=== PATIENT | female | born 1980 | race Caucasian/White ===

== ENCOUNTER 2020-04-29 19:06 | Emergency (ER) | payer BC ==
[~2020-04-29] VITALS: Ht 154.9 cm; Wt 72.7 kg
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
[2020-04-29] MEDS ORDERED: diphenhydrAMINE 50 mg/ml inj IM ONE (19:50)
[2020-04-29] MEDS ORDERED: LORazepam 2 mg/ml vial IM ONE ×2 (19:50→20:15)
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
--- NOTE | 2020-04-29 20:39 | NUR ---
PT MOTHER , PHUONG CAN BE REACHED AT [phone]
--- NOTE | 2020-04-29 20:48 | NUR ---
PT CONTINUES TO BE RESTLESS AND AGGITATED AND IS YELLING OUT PROFANITIES AT STAFF. CONTINUES IN LOCKED RESTRAINTS, WAS INITIALLY IN SOFT RESTRAINTS X4, BUT WAS PULLING OUT OF THEM SO ASHLYN FROST CHANGED TO LOCKED RESTRAINTS.
[2020-04-29 20:57] LABS: BASOPHILS # (AUTO) 0.1 X10'3 (0-0.2); BASOPHILS % (AUTO) 0.5 % (0-1); EOSINOPHILS # (AUTO) 0.1 X10'3 (0-0.9); HEMOGLOBIN 11.1 g/dl (12.0-16.0); LYMPHOCYTES % (AUTO) 38.7 % (21-51); MEAN CORPUSCULAR HEMOGLOBIN 25.8 PG (27.0-31.0); MEAN CORPUSCULAR HGB CONC 31.7 g/dL (33.0-36.5); MEAN CORPUSCULAR VOLUME 81.4 FL (78-98); MEAN PLATELET VOLUME 7.9 FL (7.4-10.4); MONOCYTES # (AUTO) 0.6 X10'3 (0-0.9); MONOCYTES % (AUTO) 4.4 % (2-12); NEUTROPHILS # (AUTO) 7.2 X10'3 (1.8-7.7); NEUTROPHILS % (AUTO) 55.4 % (42-75); PLATELET COUNT 400 X10'3 (140-440); RED CELL DISTRIBUTION WIDTH 16.8 % (11.5-14.5); WHITE BLOOD COUNT 12.9 X10'3 (4.5-11.0)
--- NOTE | 2020-04-29 21:01 | NUR ---
ASHLYN FROST UPDATED OF 2ND DOSE OF ATIVAN JUST GIVEN AND THAT PT REMAINS RESTLESS AND AGGITTED. HE REPORTS HE WILL CALL HER WITH AN UPDATED SHORTLY.
[2020-04-29 21:08] LABS: ALANINE AMINOTRANSFERASE 45 U/L (12-78); ALBUMIN 3.5 G/DL (3.4-5.0); ALKALINE PHOSPHATASE 131 IU/L (46-116); ANION GAP 11 (8-16); ASPARTATE AMINO TRANSFERASE 34 U/L (10-37); BILIRUBIN,TOTAL 0.1 MG/DL (0.1-1.0); BLOOD UREA NITROGEN 16 MG/DL (7-18); BUN/CREATININE RATIO 18.4 (6.6-38.0); CALCIUM 8.3 MG/DL (8.5-10.1); CHLORIDE 110 MMOL/L (99-107); CREATININE 0.87 MG/DL (0.40-0.90); GLUCOSE 117 MG/DL (70-104); SODIUM 147 MMOL/L (135-145); TOTAL CARBON DIOXIDE 25.9 MMOL/L (24-32); TOTAL PROTEIN 7.1 G/DL (6.4-8.2); eGFR 72 ML/MIN
[2020-04-29 21:10] LABS: LIPASE 195 U/L (73-393); PHOSPHORUS 3.8 MG/DL (2.3-4.5)
[2020-04-29 21:13] LABS: ETHANOL 0.417 GM/DL (0.0-0.010)
[2020-04-29 23:31] VITALS: BP 110/70
--- NOTE | 2020-04-29 23:41 | NUR ---
RESTRAINTS REMOVED AT 2330 PT HAS BEEN CALM AND SLEEPING OVER THE PAST 30 MIN. WARM BLANKET PLACED. HR NOW 106
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
--- NOTE | 2020-04-30 01:08 | NUR ---
Pts calling and will be here in 10 min. he reprots he is nervous to bring her home if she is still aggressive and beligerant as they have children at home. I report to him that her biggest complaint is that she cannot have him here and she needs him with her and that she wants to go home. I told him she should be very sleepy due to the meds we gave her. She is now sleeping. Pt told that he has the option to call law enforcement if necesary once home.
== END 2020-04-30 01:21 | disposition home or self-care (01) ==
LOC: ER 19:07
DX: F10.920 Alcohol use, unspecified with intoxication, uncomplicated (principal); Y90.8 Blood alcohol level of 240 mg/100 ml or more
CPT/HCPCS: 36415; 80053; 80320; 83690; 83735; 84100; 85025; 96372; 99284; J1200; J2060

== ENCOUNTER 2020-07-04 19:01 | Emergency (ER) | payer BC ==
[~2020-07-04] VITALS: Ht 154.9 cm; Wt 68.2 kg
[2020-07-04 19:03] VITALS: BP 134/89
== END 2020-07-04 22:30 | disposition left against medical advice (07) ==
LOC: ER 19:01
DX: M54.2 Cervicalgia (principal); Z53.21 Procedure and treatment not carried out due to patient leaving prior to being seen by health care provider

== ENCOUNTER 2020-10-09 19:56 | Emergency (ER) | payer BC ==
[~2020-10-09] VITALS: Ht 154.9 cm; Wt 68.0 kg
--- NOTE | 2020-10-09 20:54 | NUR ---
FEMALE RN WAS ASKED TO ASSIST PT TO CHANGE INTO GREEN SCRUBS. PT WAS COOPERATIVE WITH PROCESS REMAINS EMOTIONAL AND CRYING AT THIS TIME.
[2020-10-09 21:15] LABS: BASOPHILS % (AUTO) 0.5 % (0-1); EOSINOPHILS # (AUTO) 0.1 X10'3 (0-0.9); EOSINOPHILS % (AUTO) 0.9 % (0-6); HEMATOCRIT 31.8 % (35.0-45.0); HEMOGLOBIN 10.2 g/dl (12.0-16.0); LYMPHOCYTES # (AUTO) 3.8 X10'3 (1.1-4.8); LYMPHOCYTES % (AUTO) 45.7 % (21-51); MEAN CORPUSCULAR HEMOGLOBIN 24.7 PG (27.0-31.0); MEAN CORPUSCULAR VOLUME 77.3 FL (78-98); MEAN PLATELET VOLUME 7.9 FL (7.4-10.4); MONOCYTES # (AUTO) 0.4 X10'3 (0-0.9); MONOCYTES % (AUTO) 4.2 % (2-12); NEUTROPHILS # (AUTO) 4.1 X10'3 (1.8-7.7); NEUTROPHILS % (AUTO) 48.7 % (42-75); PLATELET COUNT 312 X10'3 (140-440); RED BLOOD COUNT 4.12 X10'6 (4.20-5.60); RED CELL DISTRIBUTION WIDTH 17.9 % (11.5-14.5); WHITE BLOOD COUNT 8.4 X10'3 (4.5-11.0)
[2020-10-09 21:28] LABS: ALANINE AMINOTRANSFERASE 31 U/L (12-78); ALBUMIN 3.1 G/DL (3.4-5.0); ALBUMIN/GLOBULIN RATIO 0.9 (1.1-1.5); ALKALINE PHOSPHATASE 90 IU/L (46-116); ANION GAP 11 (8-16); ASPARTATE AMINO TRANSFERASE 20 U/L (10-37); BILIRUBIN,TOTAL 0.1 MG/DL (0.1-1.0); BLOOD UREA NITROGEN 23 MG/DL (7-18); BUN/CREATININE RATIO 34.8 (6.6-38.0); CALCIUM 7.4 MG/DL (8.5-10.1); CHLORIDE 109 MMOL/L (99-107); CREATININE 0.66 MG/DL (0.40-0.90); ETHANOL 0.244 GM/DL (0.0-0.010); GLUCOSE 98 MG/DL (70-104); POTASSIUM 3.9 MMOL/L (3.5-5.1); SODIUM 143 MMOL/L (135-145); TOTAL CARBON DIOXIDE 23.4 MMOL/L (24-32); TOTAL PROTEIN 6.5 G/DL (6.4-8.2); eGFR > 90 ML/MIN
--- NOTE | 2020-10-09 22:48 | NUR ---
The patient moved to bed 26 in the ER overflow. She was cooperative with the move and did provide a urine sample.
[2020-10-09 22:51] LABS: URINE HCG NEGATIVE (NEG)
[2020-10-09 23:02] LABS: URINE AMPHETAMINE SCREEN POSITIVE (Neg); URINE BARBITUATE SCREEN NEGATIVE (Neg); URINE BENZODIAZEPINES SCREEN NEGATIVE (Neg); URINE CANNABINOID SCREEN NEGATIVE (Neg); URINE COCAINE SCREEN NEGATIVE (Neg); URINE METHADONE SCREEN NEGATIVE (Neg); URINE OPIATE SCREEN NEGATIVE (Neg); URINE PHENCYCLIDINE SCREEN NEGATIVE (Neg)
--- NOTE | 2020-10-10 00:08 | NUR ---
The patient appears to be sleeping
--- NOTE | 2020-10-10 01:59 | NUR ---
The patient appears to be sleeping
--- NOTE | 2020-10-10 03:50 | NUR ---
The patient appears to be sleeping
--- NOTE | 2020-10-10 05:20 | NUR ---
The patient appears to be sleeping
[2020-10-10 06:03] VITALS: BP 132/78
--- NOTE | 2020-10-10 06:46 | NUR ---
PT'S CALLED TO TELL HER THAT HE LOVES HER. HIS NAME IS EMILY, HIS NUMBER IS [phone].
[2020-10-10 07:06] LABS: UA COLLECTION TYPE CLN CATCH MIDSTREAM
[2020-10-10 07:08] LABS: COLOR,URINE YELLOW (Yellow); GLUCOSE, URINE NEGATIVE (Neg); KETONES,URINE NEGATIVE (Neg); LEUKOCYTE ESTERASE ,URINE NEGATIVE (Neg); NITRITES, URINE POSITIVE (Neg); OCCULT BLOOD,URINE TRACE-INTACT (Neg); PROTEIN,URINE NEGATIVE (Neg); UROBILINOGEN,URINE 0.2 E.U/dL (0.2-1.0)
[2020-10-10 07:10] LABS: CLARITY,URINE SLIGHTLY CLOUDY (Clear)
[2020-10-10 07:12] LABS: BACTERIA,URINE 4+ /HPF (Neg); RBC,URINE 0-2 /HPF (0-2); SQUAMOUS EPITHELIAL CELL,UR FEW /LPF (FEW); WBC,URINE 0-4 /HPF (0-4)
[2020-10-10 07:13] LABS: CAL OXALATE CRYSTALS FEW /HPF (NEGATIVE)
--- NOTE | 2020-10-10 07:32 | NUR ---
PACKET FAXED TO [facility]
[2020-10-10] MEDS ORDERED: acetaminophen 325mg tablet PO ONE (09:35)
[2020-10-10] MEDS ORDERED: LAMO25TA94 PO (12:16)
== END 2020-10-10 14:50 | disposition home or self-care (01) ==
LOC: ER 19:57
DX: R45.851 Suicidal ideations (principal); F10.129 Alcohol abuse with intoxication, unspecified; F15.90 Other stimulant use, unspecified, uncomplicated; Z88.5 Allergy status to narcotic agent; Z88.1 Allergy status to other antibiotic agents; Z88.8 Allergy status to other drugs, medicaments and biological substances; Z79.899 Other long term (current) drug therapy; Y90.9 Presence of alcohol in blood, level not specified
CPT/HCPCS: 36415; 80053; 80305; 80320; 81001; 81025; 85025; 87077; 87088; 87186; 99285

== ENCOUNTER 2020-11-27 22:16 | Emergency (ER) | payer BC ==
[~2020-11-27] VITALS: Ht 160 cm; Wt 80.0 kg
[~2020-11-27 22:16] MED LIST: LAMO25TA94 PO
[2020-11-27 22:42] VITALS: BP 122/82
[2020-11-28] MEDS ORDERED: DEXA6TAB6 PO (10:13)
== END 2020-11-28 00:15 | disposition left against medical advice (07) ==
LOC: ER 22:17
DX: F50.9 Eating disorder, unspecified (principal); Z53.21 Procedure and treatment not carried out due to patient leaving prior to being seen by health care provider

== ENCOUNTER 2020-11-28 08:24 | Emergency (ER) | payer BC ==
[~2020-11-28] VITALS: Ht 160 cm; Wt 80.0 kg
[2020-11-28 09:14] VITALS: BP 146/107
[2020-11-28] MEDS ORDERED: DEXA6TAB6 PO (10:13)
== END 2020-11-28 08:55 | disposition home or self-care (01) ==
LOC: ER 08:24
DX: J02.9 Acute pharyngitis, unspecified (principal); Z20.822 Contact with and (suspected) exposure to COVID-19; R05 Cough; R51.9 Headache, unspecified; R43.8 Other disturbances of smell and taste; F17.200 Nicotine dependence, unspecified, uncomplicated; F15.90 Other stimulant use, unspecified, uncomplicated; Z72.89 Other problems related to lifestyle; Z88.5 Allergy status to narcotic agent; Z88.0 Allergy status to penicillin; Z88.8 Allergy status to other drugs, medicaments and biological substances; Z79.899 Other long term (current) drug therapy
CPT/HCPCS: 71045; 87635; 99284; C9803

== ENCOUNTER 2020-12-30 13:51 | Emergency (ER) | payer BC, MEDICAID ==
[~2020-12-30] VITALS: Ht 160 cm; Wt 77.0 kg
[~2020-12-30 13:51] MED LIST changes: +DEXA6TAB6 PO
[2020-12-30] MEDS ORDERED: nitroGLYCERIN 0.4mg SUBLingual tab SL PRN (15:05)
[2020-12-30 15:32] LABS: BASOPHILS % (AUTO) 0.4 % (0-1); EOSINOPHILS # (AUTO) 0.1 X10'3 (0-0.9); EOSINOPHILS % (AUTO) 1.1 % (0-6); HEMATOCRIT 30.9 % (35.0-45.0); HEMOGLOBIN 9.9 g/dl (12.0-16.0); LYMPHOCYTES # (AUTO) 3.3 X10'3 (1.1-4.8); LYMPHOCYTES % (AUTO) 35.8 % (21-51); MEAN CORPUSCULAR HEMOGLOBIN 24.4 PG (27.0-31.0); MEAN CORPUSCULAR HGB CONC 32.1 g/dL (33.0-36.5); MEAN CORPUSCULAR VOLUME 75.9 FL (78-98); MEAN PLATELET VOLUME 8.1 FL (7.4-10.4); MONOCYTES # (AUTO) 0.6 X10'3 (0-0.9); MONOCYTES % (AUTO) 6.8 % (2-12); NEUTROPHILS # (AUTO) 5.1 X10'3 (1.8-7.7); NEUTROPHILS % (AUTO) 55.9 % (42-75); PLATELET COUNT 303 X10'3 (140-440); RED BLOOD COUNT 4.08 X10'6 (4.20-5.60); RED CELL DISTRIBUTION WIDTH 17.8 % (11.5-14.5); WHITE BLOOD COUNT 9.1 X10'3 (4.5-11.0)
[2020-12-30 15:43] LABS: ALANINE AMINOTRANSFERASE 31 U/L (12-78); ALBUMIN/GLOBULIN RATIO 0.9 (1.1-1.5); ALKALINE PHOSPHATASE 129 IU/L (46-116); ANION GAP 8 (8-16); ASPARTATE AMINO TRANSFERASE 20 U/L (10-37); BILIRUBIN,TOTAL 0.1 MG/DL (0.1-1.0); BLOOD UREA NITROGEN 13 MG/DL (7-18); BUN/CREATININE RATIO 17.3 (6.6-38.0); CALCIUM 8.3 MG/DL (8.5-10.1); CHLORIDE 110 MMOL/L (99-107); CREATININE 0.75 MG/DL (0.40-0.90); GLUCOSE 72 MG/DL (70-104); POTASSIUM 4.2 MMOL/L (3.5-5.1); SODIUM 145 MMOL/L (135-145); TOTAL CARBON DIOXIDE 27.3 MMOL/L (24-32); TOTAL PROTEIN 6.5 G/DL (6.4-8.2); eGFR 85 ML/MIN
--- NOTE | 2020-12-30 16:15 | NUR ---
pt moved from hallway with medics to room 7
[2020-12-30] MEDS ORDERED: sucralfate 1gm/10ml UD suspension PO STA (17:08)
[2020-12-30] MEDS ORDERED: LIDOcaine Viscous 15ml cup MM ONE (17:10)
[2020-12-30] MEDS ORDERED: mag hydrox/Alum hydrox/simeth 30ml oral suspension PO ONE (17:10)
[2020-12-30] MEDS ORDERED: sucralfate 1 gm tablet PO STA (17:15)
[2020-12-30 17:50] VITALS: BP 120/82
== END 2020-12-30 18:34 | disposition home or self-care (01) ==
LOC: ER 13:51
DX: R07.89 Other chest pain (principal); R20.0 Anesthesia of skin; R20.2 Paresthesia of skin; R06.02 Shortness of breath; F15.90 Other stimulant use, unspecified, uncomplicated; Z72.89 Other problems related to lifestyle; Z88.0 Allergy status to penicillin; Z88.8 Allergy status to other drugs, medicaments and biological substances; Z79.899 Other long term (current) drug therapy
CPT/HCPCS: 36415; 71045; 80053; 83880; 84484; 85025; 93005; 99285

== ENCOUNTER → 2021-02-26 | Outpatient (CLI) | payer BC, MEDICAID ==
[~2021-02-26] MED LIST changes: +barium sulfate 450ml oral suspension ONE; +iohexol 300mg/ml 100ml inj. ONE
== END | disposition home or self-care (01) ==
LOC: RAD 08:54
DX: N83.201 Unspecified ovarian cyst, right side (principal); Z90.49 Acquired absence of other specified parts of digestive tract
CPT/HCPCS: 74177; Q9967

== ENCOUNTER 2021-06-25 12:52 | Outpatient (CLI) | payer BC, MEDICAID ==
[~2021-06-25 12:52] MED LIST changes: -barium sulfate 450ml oral suspension ONE; -iohexol 300mg/ml 100ml inj. ONE
[2021-06-25 17:12] LABS: BASOPHILS % (AUTO) 0.5 % (0-1); EOSINOPHILS # (AUTO) 0.1 X10'3 (0-0.9); EOSINOPHILS % (AUTO) 1.4 % (0-6); HEMATOCRIT 32.1 % (35.0-45.0); HEMOGLOBIN 10.2 g/dl (12.0-16.0); LYMPHOCYTES # (AUTO) 3.4 X10'3 (1.1-4.8); LYMPHOCYTES % (AUTO) 33.5 % (21-51); MEAN CORPUSCULAR HEMOGLOBIN 22.9 PG (27.0-31.0); MEAN CORPUSCULAR HGB CONC 31.6 g/dL (33.0-36.5); MEAN CORPUSCULAR VOLUME 72.6 FL (78-98); MEAN PLATELET VOLUME 8.6 FL (7.4-10.4); MONOCYTES # (AUTO) 0.5 X10'3 (0-0.9); MONOCYTES % (AUTO) 5.1 % (2-12); NEUTROPHILS # (AUTO) 6.1 X10'3 (1.8-7.7); NEUTROPHILS % (AUTO) 59.5 % (42-75); PLATELET COUNT 330 X10'3 (140-440); RED BLOOD COUNT 4.43 X10'6 (4.20-5.60); RED CELL DISTRIBUTION WIDTH 19.3 % (11.5-14.5); WHITE BLOOD COUNT 10.3 X10'3 (4.5-11.0)
[2021-06-25 17:34] LABS: ALANINE AMINOTRANSFERASE 24 U/L (12-78); ALBUMIN 3.4 G/DL (3.4-5.0); ALBUMIN/GLOBULIN RATIO 0.9 (1.1-1.5); ALKALINE PHOSPHATASE 121 IU/L (46-116); ANION GAP 12 (8-16); ASPARTATE AMINO TRANSFERASE 15 U/L (10-37); BILIRUBIN,TOTAL 0.2 MG/DL (0.1-1.0); BLOOD UREA NITROGEN 14 MG/DL (7-18); BUN/CREATININE RATIO 23.7 (6.6-38.0); C-REACTIVE PROTEIN 0.05 MG/DL (0.0-0.5); CALCIUM 8.6 MG/DL (8.5-10.1); CHLORIDE 108 MMOL/L (99-107); CREATININE 0.59 MG/DL (0.40-0.90); GLUCOSE 139 MG/DL (70-104); POTASSIUM 3.9 MMOL/L (3.5-5.1); SODIUM 140 MMOL/L (135-145); TOTAL CARBON DIOXIDE 20.5 MMOL/L (24-32); eGFR > 90 ML/MIN
[2021-06-25 17:37] LABS: HIV ANTIBODY 1&2 RAPID NON-REACTIVE (Neg)
[2021-06-25 17:38] LABS: ANISOCYTOSIS 2+; MICROCYTOSIS 1+; PLATELET ESTIMATE NORMAL
== END 2021-06-25 23:59 | disposition home or self-care (01) ==
LOC: LAB 12:52
PROVIDERS: ATTEND Nurse Practitioner Family
DX: F10.11 Alcohol abuse, in remission (principal); F41.9 Anxiety disorder, unspecified; R53.83 Other fatigue; H53.8 Other visual disturbances; M79.604 Pain in right leg
CPT/HCPCS: 36415; 80053; 80074; 82306; 82607; 82746; 84439; 84481; 85008; 85025; 86038; 86140; 86703

== ENCOUNTER 2021-06-27 08:27 | Outpatient (CLI) | payer BC, MEDICAID ==
[2021-06-27] MEDS ORDERED: GADOTERATE MEGLUMINE 7.5 MMOL/15 ML VIAL IV ONE (14:33)
== END 2021-06-27 23:59 | disposition home or self-care (01) ==
LOC: RAD 08:27
PROVIDERS: ATTEND Nurse Practitioner Family
DX: H53.9 Unspecified visual disturbance (principal); R55 Syncope and collapse; R20.0 Anesthesia of skin
CPT/HCPCS: 70553; A9575

== ENCOUNTER 2021-07-05 08:41 | Outpatient (CLI) | payer BC, MEDICAID ==
[2021-07-05 16:54] LABS: CREATINE KINASE 69 U/L (26-192); LACTATE DEHYDROGENASE 156 U/L (81-234)
== END 2021-07-05 23:59 | disposition home or self-care (01) ==
LOC: LAB 08:41
PROVIDERS: ATTEND Nurse Practitioner Family
DX: R74.8 Abnormal levels of other serum enzymes (principal); R20.0 Anesthesia of skin; R53.83 Other fatigue; M79.604 Pain in right leg; Z84.1 Family history of disorders of kidney and ureter
CPT/HCPCS: 36415; 82550; 83615; 85651; 86256

== ENCOUNTER 2021-09-25 07:11 | Outpatient (CLI) | payer BC, MEDICAID ==
[2021-09-25 09:09] LABS: CLARITY,URINE SLIGHTLY CLOUDY (Clear); COLOR,URINE YELLOW (Yellow); GLUCOSE, URINE NEGATIVE (Neg); KETONES,URINE NEGATIVE (Neg); LEUKOCYTE ESTERASE ,URINE NEGATIVE (Neg); NITRITES, URINE NEGATIVE (Neg); OCCULT BLOOD,URINE NEGATIVE (Neg); PROTEIN,URINE NEGATIVE (Neg); UROBILINOGEN,URINE 0.2 E.U/dL (0.2-1.0)
[2021-09-25 09:12] LABS: UA COLLECTION TYPE CLN CATCH MIDSTREAM
[2021-09-25 09:36] LABS: BACTERIA,URINE FEW /HPF (Neg); MUCUS STRANDS NONE SEEN /LPF (Neg); RBC,URINE NONE SEEN /HPF (0-2); SQUAMOUS EPITHELIAL CELL,UR MODERATE /LPF (FEW); WBC,URINE 0-4 /HPF (0-4)
[2021-09-26 12:25] LABS: ANTI-DSDNA ANTIBODIES <1 IU/mL (0-9); ANTINUCLEAR ANTIBODIES Positive (Negative); COMPLEMENT C3, SERUM 155 mg/dL (82-167); COMPLEMENT C4, SERUM 27 mg/dL (12-38); THYROID PEROXIDASE AB <8 IU/mL (0-34)
== END 2021-09-25 23:59 | disposition home or self-care (01) ==
LOC: LAB 07:11
PROVIDERS: ATTEND Nurse Practitioner Family
DX: M35.00 Sjogren syndrome, unspecified (principal); R76.8 Other specified abnormal immunological findings in serum; R53.83 Other fatigue; R20.0 Anesthesia of skin
CPT/HCPCS: 36415; 81001; 86038; 86160; 86200; 86235; 86256; 86376

== ENCOUNTER 2021-10-05 21:10 | Emergency (ER) | payer BC, MEDICAID ==
[~2021-10-05] VITALS: Ht 160 cm; Wt 79.5 kg
[2021-10-05] MEDS ORDERED: normal saline 1000ML IV soln IVB ONE (21:25)
[2021-10-05 21:46] LABS: BASOPHILS # (AUTO) 0.1 X10'3 (0-0.2); BASOPHILS % (AUTO) 0.5 % (0-1); EOSINOPHILS # (AUTO) 0.1 X10'3 (0-0.9); EOSINOPHILS % (AUTO) 0.7 % (0-6); HEMATOCRIT 26.6 % (35.0-45.0); HEMOGLOBIN 8.2 g/dl (12.0-16.0); LYMPHOCYTES # (AUTO) 2.4 X10'3 (1.1-4.8); LYMPHOCYTES % (AUTO) 20.5 % (21-51); MEAN CORPUSCULAR HEMOGLOBIN 21.4 PG (27.0-31.0); MEAN CORPUSCULAR HGB CONC 30.9 g/dL (33.0-36.5); MEAN CORPUSCULAR VOLUME 69.3 FL (78-98); MEAN PLATELET VOLUME 8.1 FL (7.4-10.4); MONOCYTES # (AUTO) 0.7 X10'3 (0-0.9); NEUTROPHILS # (AUTO) 8.4 X10'3 (1.8-7.7); NEUTROPHILS % (AUTO) 72.3 % (42-75); PLATELET COUNT 284 X10'3 (140-440); RED BLOOD COUNT 3.83 X10'6 (4.20-5.60); RED CELL DISTRIBUTION WIDTH 19.2 % (11.5-14.5); WHITE BLOOD COUNT 11.6 X10'3 (4.5-11.0)
[2021-10-05 22:02] LABS: ALANINE AMINOTRANSFERASE 25 U/L (12-78); ALKALINE PHOSPHATASE 97 IU/L (46-116); ANION GAP 7 (8-16); ASPARTATE AMINO TRANSFERASE 18 U/L (10-37); BILIRUBIN,TOTAL 0.2 MG/DL (0.1-1.0); BLOOD UREA NITROGEN 16 MG/DL (7-18); BUN/CREATININE RATIO 19.3 (6.6-38.0); CALCIUM 7.7 MG/DL (8.5-10.1); CHLORIDE 110 MMOL/L (99-107); CREATININE 0.83 MG/DL (0.40-0.90); GLUCOSE 102 MG/DL (70-104); POTASSIUM 4.1 MMOL/L (3.5-5.1); SODIUM 141 MMOL/L (135-145); TOTAL CARBON DIOXIDE 24.4 MMOL/L (24-32); TOTAL PROTEIN 6.1 G/DL (6.4-8.2); eGFR 76 ML/MIN
[2021-10-05 22:50] VITALS: BP 99/54
[2021-10-05 22:59] LABS: PLATELET ESTIMATE NORMAL
[2021-10-05 23:00] LABS: ANISOCYTOSIS 2+; HYPOCHROMASIA 1+; MICROCYTOSIS 2+
== END 2021-10-05 22:42 | disposition home or self-care (01) ==
LOC: ER 21:10 → EEVIPCON 21:10 → ER 22:42
DX: R55 Syncope and collapse (principal); E86.0 Dehydration; M54.59 Other low back pain; E11.9 Type 2 diabetes mellitus without complications; Z88.5 Allergy status to narcotic agent; Z88.0 Allergy status to penicillin; Z88.8 Allergy status to other drugs, medicaments and biological substances
CPT/HCPCS: 36415; 71045; 80053; 83735; 83880; 84145; 84484; 85008; 85025; 93005; 96360; 99285; J7030

== ENCOUNTER 2021-10-17 08:17 | Emergency (ER) | payer BC, MEDICAID ==
[~2021-10-17] VITALS: Ht 160 cm; Wt 79.0 kg
[2021-10-17 09:00] VITALS: BP 131/75
[2021-10-17 09:19] LABS: CLARITY,URINE CLEAR (Clear); COLOR,URINE YELLOW (Yellow); GLUCOSE, URINE NEGATIVE (Neg); KETONES,URINE NEGATIVE (Neg); LEUKOCYTE ESTERASE ,URINE NEGATIVE (Neg); NITRITES, URINE NEGATIVE (Neg); OCCULT BLOOD,URINE NEGATIVE (Neg); PH,URINE 5.5 (4.8-8.0); PROTEIN,URINE NEGATIVE (Neg); UROBILINOGEN,URINE 0.2 E.U/dL (0.2-1.0)
[2021-10-17] MEDS ORDERED: SULF1TAB49 PO (09:26)
[2021-10-17 09:30] LABS: UA COLLECTION TYPE CLN CATCH MIDSTREAM
[2021-10-17] MEDS ORDERED: sulfamethoxazole/trimethoprim DS (800/160mg) tablet PO ONE (09:45)
== END 2021-10-17 10:14 | disposition home or self-care (01) ==
LOC: ER 08:17 → EEVIPCON 08:17 → ER 10:14
DX: N39.0 Urinary tract infection, site not specified (principal); E11.9 Type 2 diabetes mellitus without complications; F15.20 Other stimulant dependence, uncomplicated; Z88.0 Allergy status to penicillin; Z88.5 Allergy status to narcotic agent; Z88.8 Allergy status to other drugs, medicaments and biological substances
CPT/HCPCS: 81003; 87088; 99283

== ENCOUNTER 2022-01-21 11:29 | Outpatient (CLI) | payer BC, MEDICAID | END 2022-01-21 23:59 | disposition home or self-care (01) | LOC: RAD 11:29 | PROVIDERS: ATTEND Nurse Practitioner Family | DX: M47.814 Spondylosis without myelopathy or radiculopathy, thoracic region (principal); M48.04 Spinal stenosis, thoracic region; M25.78 Osteophyte, vertebrae | CPT/HCPCS: 72070; 72100; 73030; 73522; 73560 ==

== ENCOUNTER 2022-04-09 08:44 | Day surgery (SDC) | payer BC, MEDICAID ==
[~2022-04-09] VITALS: Ht 160 cm; Wt 93.2 kg
[2022-04-09 08:55] VITALS: BP 112/76
[2022-04-09] MEDS ORDERED: METH27TA4 PO (09:03)
[2022-04-09] MEDS ORDERED: DULO-31 PO (09:03)
[2022-04-09] MEDS ORDERED: HYDR-3686 PO (09:03)
[2022-04-09] MEDS ORDERED: FENTANYL CITRATE/PF 50 MCG/1 ML VIAL ONE ×2 (09:07→09:58)
[2022-04-09] MEDS ORDERED: MIDAZolam 1 MG/ML 5ML VIAL ONE (09:08)
[2022-04-09 10:15] VITALS: BP 113/76
[2022-04-09 10:25] VITALS: BP 111/69
[2022-04-09 10:35] VITALS: BP 111/74
[2022-04-09 10:45] VITALS: BP 109/52
== END 2022-04-09 10:52 | disposition home or self-care (01) ==
LOC: GI LAB 08:44
PROVIDERS: ATTEND Internal Medicine Gastroenterology
DX: Z08 Encounter for follow-up examination after completed treatment for malignant neoplasm (principal); D12.3 Benign neoplasm of transverse colon; Z86.010 Personal history of colon polyps
CPT/HCPCS: 45385; 99152; J2250; J3010; J7030; Z7512; A4620; C1889

== ENCOUNTER 2022-06-01 10:57 | Emergency (ER) | payer OTHER, MEDICAID, BC ==
[~2022-06-01] VITALS: Ht 160 cm; Wt 79.5 kg
[~2022-06-01 10:57] MED LIST changes: -DEXA6TAB6 PO; +DULO-31 PO; +HYDR-3686 PO; -LAMO25TA94 PO; +METH27TA4 PO
[2022-06-01 11:01] VITALS: BP 125/80
== END 2022-06-01 15:20 | disposition home or self-care (01) ==
LOC: ER 10:58
DX: R07.89 Other chest pain (principal); R51.9 Headache, unspecified; M25.512 Pain in left shoulder; E11.9 Type 2 diabetes mellitus without complications; M79.7 Fibromyalgia; F15.90 Other stimulant use, unspecified, uncomplicated; Z72.9 Problem related to lifestyle, unspecified; Z88.8 Allergy status to other drugs, medicaments and biological substances; Z88.0 Allergy status to penicillin; Z79.899 Other long term (current) drug therapy; F90.9 Attention-deficit hyperactivity disorder, unspecified type; V89.2XXA Person injured in unspecified motor-vehicle accident, traffic, initial encounter; Y93.89 Activity, other specified; Y92.89 Other specified places as the place of occurrence of the external cause; Y99.8 Other external cause status
CPT/HCPCS: 99281

== ENCOUNTER → 2023-01-02 | Outpatient (CLI) | payer BC, MEDICAID | END | disposition home or self-care (01) | LOC: RAD 10:29 | PROVIDERS: ATTEND Internal Medicine Hematology & Oncology | DX: N26.1 Atrophy of kidney (terminal) (principal); D64.9 Anemia, unspecified; Z90.49 Acquired absence of other specified parts of digestive tract | CPT/HCPCS: 76700 ==

== ENCOUNTER 2024-03-02 10:50 | Emergency (ER) | payer BC ==
[~2024-03-02] VITALS: Ht 157.5 cm; Wt 88.0 kg
[2024-03-02 10:51] VITALS: TEMP 97.7
[2024-03-02 11:12] LABS: BASOPHILS % (AUTO) 0.4 % (0-1); EOSINOPHILS # (AUTO) 0.1 X10'3 (0-0.9); EOSINOPHILS % (AUTO) 1.6 % (0-6); HEMATOCRIT 36.7 % (35.0-45.0); HEMOGLOBIN 12.1 g/dl (12.0-16.0); LYMPHOCYTES # (AUTO) 2.2 X10'3 (1.1-4.8); LYMPHOCYTES % (AUTO) 24.1 % (21-51); MEAN CORPUSCULAR HEMOGLOBIN 30.2 PG (27.0-31.0); MEAN CORPUSCULAR HGB CONC 32.9 g/dL (33.0-36.5); MEAN CORPUSCULAR VOLUME 91.9 FL (78-98); MEAN PLATELET VOLUME 7.8 FL (7.4-10.4); MONOCYTES # (AUTO) 0.7 X10'3 (0-0.9); MONOCYTES % (AUTO) 7.7 % (2-12); NEUTROPHILS # (AUTO) 6.1 X10'3 (1.8-7.7); NEUTROPHILS % (AUTO) 66.2 % (42-75); PLATELET COUNT 322 X10'3 (140-440); RED BLOOD COUNT 3.99 X10'6 (4.20-5.60); RED CELL DISTRIBUTION WIDTH 13.4 % (11.5-14.5); WHITE BLOOD COUNT 9.2 X10'3 (4.5-11.0)
[2024-03-02 11:25] LABS: ALANINE AMINOTRANSFERASE 38 U/L (12-78); ALBUMIN 2.8 G/DL (3.4-5.0); ALBUMIN/GLOBULIN RATIO 0.8 (1.1-1.5); ALKALINE PHOSPHATASE 109 IU/L (46-116); ANION GAP 6 (8-16); ASPARTATE AMINO TRANSFERASE 25 U/L (10-37); BILIRUBIN,TOTAL 0.2 MG/DL (0.1-1.0); BLOOD UREA NITROGEN 14 MG/DL (7-18); BUN/CREATININE RATIO 21.9 (10.0-20.0); CALCIUM 8.1 MG/DL (8.5-10.1); CHLORIDE 106 MMOL/L (99-107); CREATININE 0.64 MG/DL (0.40-0.90); GLUCOSE 132 MG/DL (70-104); SODIUM 139 MMOL/L (135-145); TOTAL CARBON DIOXIDE 26.9 MMOL/L (24-32); TOTAL PROTEIN 6.1 G/DL (6.4-8.2); eCRCL 89 ML/MIN; eGFR > 90 ML/MIN
[2024-03-02 11:30] LABS: LIPASE 114 U/L (16-77)
[2024-03-02 11:35] LABS: ETHANOL < 10 MG/DL (<10)
[2024-03-02 11:47] LABS: HEMOGLOBIN A1C 5.3 % (4.5-6.2)
[2024-03-02 14:04] VITALS: BP 121/74; PULSE 80; RESP 18; O2SAT 97
== END 2024-03-02 14:10 | disposition home or self-care (01) ==
LOC: ER 10:50
DX: E11.649 Type 2 diabetes mellitus with hypoglycemia without coma (principal); F32.A Depression, unspecified; M79.7 Fibromyalgia; Z88.5 Allergy status to narcotic agent; Z88.8 Allergy status to other drugs, medicaments and biological substances; Z88.0 Allergy status to penicillin; Z87.440 Personal history of urinary (tract) infections
CPT/HCPCS: 36415; 80053; 80320; 83036; 83690; 85025; 93005; 99284